=== PATIENT | male | born 1975 | race African-American/Black ===

== ENCOUNTER 2016-05-06 17:50 | Emergency (ER) | payer OTHER ==
[2016-05-06 18:02] VITALS: BP 120/65
[2016-05-06] MEDS ORDERED: IBUPROFEN 800 MG TABLET PO ONE (18:33)
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
[2016-05-06] MEDS ORDERED: OXYCODONE-ACETAMINOPHEN 5-325 MG TABLET PO ONE (20:14)
[2016-05-06] MEDS ORDERED: CYCLOBENZAPRINE HCL 10 MG TABLET PO ONE (20:14)
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
== END 2016-05-06 20:42 | disposition home or self-care (01) ==
LOC: ER 17:50
DX: S29.012A Strain of muscle and tendon of back wall of thorax, initial encounter (principal); V48.5XXA Car driver injured in noncollision transport accident in traffic accident, initial encounter; F17.200 Nicotine dependence, unspecified, uncomplicated
CPT/HCPCS: 72070; 99284